=== PATIENT | male | born 1975 | race Caucasian/White ===

== ENCOUNTER 2018-06-20 06:00 | Emergency (ER) | payer OTHER ==
[~2018-06-20] VITALS: Ht 180.3 cm; Wt 90.7 kg
[~2018-06-20 06:00] MED LIST: CIPRO500 MG PO; FLAGYL500 M1 PO; PERCOCET 5-3251 EACH PO
[2018-06-20] MEDS ORDERED: ANTIDEPRESSANT (06:12)
[2018-06-20] MEDS ORDERED: SEROQUEL 25 MG25 M2 (06:12)
[2018-06-20 06:25] LABS: ABSOLUTE BASOPHILS 0.1 thou/uL (0.0-0.2); ABSOLUTE LYMPHOCYTES 1.3 thou/uL (0.8-5.3); ABSOLUTE MONOCYTES 0.4 thou/uL (0.0-1.2); ABSOLUTE NEUTROPHILS 4.2 thou/uL (1.6-8.1); BASOPHILS 1.5 %; EOSINOPHILS 0.5 %; HEMATOCRIT 47.5 % (42.0-52.0); HEMOGLOBIN 16.2 gm/dL (14.0-18.0); LYMPHOCYTES 21.7 %; MCH 29.2 pg (26.0-34.0); MCHC 34.1 g/dL (28.0-37.0); MCV 85.6 fL (80.0-100.0); MONOCYTES 5.9 %; MPV 8.4 fl. (7.2-11.1); NUCLEATED RBCS 0 /100WBC; PLATELET COUNT* 312 thou/uL (150-400); POLYS 70.4 %; RBC 5.55 mil/uL (4.50-6.00); RDW-CV 13.4 % (10.5-14.5)
[2018-06-20 06:32] LABS: CALCIUM 8.9 mg/dL (8.5-10.1); POTASSIUM 4.1 mmol/L (3.5-5.1)
[2018-06-20 06:38] LABS: ALBUMIN 3.9 g/dL (3.4-5.0); TOTAL BILIRUBIN 0.5 mg/dL (<0.1-1.0); TOTAL PROTEIN 7.7 g/dL (6.4-8.2)
[2018-06-20] MEDS ORDERED: ZOFRAN ODT4 MG SUBLING (06:47)
[2018-06-20 07:42] VITALS: BP 162/100
--- NOTE | 2018-06-20 17:19 | EKG ---
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
== END 2018-06-20 07:44 | disposition home or self-care (01) ==
LOC: M.ERS 06:00
PROVIDERS: Family Medicine
DX: R11.2 Nausea with vomiting, unspecified (principal); F10.129 Alcohol abuse with intoxication, unspecified; F31.9 Bipolar disorder, unspecified; F12.10 Cannabis abuse, uncomplicated; Y90.4 Blood alcohol level of 80-99 mg/100 ml